=== PATIENT | female | born 1965 | race Hispanic/Latino ===

== ENCOUNTER → 2023-11-05 | Outpatient (CLI) | payer OTHER | END | disposition home or self-care (01) | LOC: EDUNIT# 07-19 13:30 → RAH 12:13 | PROVIDERS: ATTEND Physical Medicine & Rehabilitation | DX: M47.26 Other spondylosis with radiculopathy, lumbar region (principal); M48.061 Spinal stenosis, lumbar region without neurogenic claudication; M47.22 Other spondylosis with radiculopathy, cervical region; M41.9 Scoliosis, unspecified | CPT/HCPCS: 72050; 72114 ==

== ENCOUNTER → 2023-12-05 | Outpatient (CLI) | payer OTHER | END | disposition home or self-care (01) | LOC: RAH 11:52 | PROVIDERS: ATTEND Physician Assistant | DX: M47.26 Other spondylosis with radiculopathy, lumbar region (principal); M41.55 Other secondary scoliosis, thoracolumbar region; N28.1 Cyst of kidney, acquired; Z88.8 Allergy status to other drugs, medicaments and biological substances | CPT/HCPCS: 72148 ==

== ENCOUNTER → 2024-02-12 | Outpatient (CLI) | payer OTHER | END | disposition home or self-care (01) | LOC: RAH 11:04 | PROVIDERS: ATTEND Physical Medicine & Rehabilitation | DX: M47.22 Other spondylosis with radiculopathy, cervical region (principal); M48.02 Spinal stenosis, cervical region; M54.2 Cervicalgia; M43.22 Fusion of spine, cervical region | CPT/HCPCS: 72141 ==

== ENCOUNTER → 2024-12-03 | Outpatient (CLI) | payer OTHER ==
--- NOTE | 2024-12-03 17:07 | HMCIMG ---
LUMBAR W FLEXION/EXTENSION REASON: RADICULOPATHY, LUMBAR REGION. COMPARISON: None TECHNIQUE: 4 images of the lumbar spine were obtained including flexion and extension views. FINDINGS: There is straightening of normal lordotic lumbar curvature which may be related to muscle spasm or position. There are degenerative changes with spondylosis. Disc space narrowing are seen at L1-2 through L4-5 levels. No loss of device seen. IMPRESSION: DJD with spondylosis.
--- NOTE | 2024-12-03 17:09 | HMCIMG ---
CERV SPINE 4-5 VWS REASON: CERVICALGIA, RADICULOPATHY. COMPARISON: None TECHNIQUE: 5 images of cervical spine were obtained including flexion and extension views. FINDINGS: There is anterior subluxation of C3 over C4 and C4 over C5. There are degenerative changes of the cervical spine spondylosis. No loss of vertebral height is seen. IMPRESSION: Findings as described above.
--- NOTE | 2024-12-03 17:10 | HMCIMG ---
SCOLIOSIS 2-3VW REASON: SCOLIOSIS, OTHER IDIOPATHIC SCOLIOSIS, THORACIC REGION. COMPARISON: None TECHNIQUE: Scoliosis series was obtained. FINDINGS: There is dextroscoliosis of thoracolumbar spine with scoliotic angle of 31 degrees. No loss of vertebral height is seen. Degenerative changes are seen. IMPRESSION: Scoliosis.
== END | disposition home or self-care (01) ==
LOC: RAH 13:51
PROVIDERS: ATTEND Physician Assistant
DX: S13.150A Subluxation of C4/C5 cervical vertebrae, initial encounter (principal); S13.140A Subluxation of C3/C4 cervical vertebrae, initial encounter; M47.26 Other spondylosis with radiculopathy, lumbar region; M47.22 Other spondylosis with radiculopathy, cervical region; M48.061 Spinal stenosis, lumbar region without neurogenic claudication; M41.85 Other forms of scoliosis, thoracolumbar region; M41.24 Other idiopathic scoliosis, thoracic region; M47.9 Spondylosis, unspecified; M54.2 Cervicalgia; X58.XXXA Exposure to other specified factors, initial encounter; Y93.89 Activity, other specified; Y92.89 Other specified places as the place of occurrence of the external cause; Y99.8 Other external cause status
CPT/HCPCS: 72050; 72082; 72114

== ENCOUNTER → 2024-12-25 | Outpatient (CLI) | payer OTHER ==
--- NOTE | 2024-12-25 16:56 | HMCIMG ---
MR SPINAL CANAL, LUMBAR WO CON HISTORY: Back pain COMPARISON: None TECHNIQUE: MRI of the lumbar spine was performed utilizing multiple pulse sequences in axial , coronal and sagittal plane. Patient was not given contrast through intravenous route. FINDINGS: There is dextroscoliosis of thoracolumbar spine. Degenerative changes of the lumbar spine spondylosis. No abnormal signal intensity is seen of the visualized bony structure. No loss of vertebral height is seen. There is straightening of normal lumbar curvature which may be related to muscle spasm or positioning. Degenerative disc signals are present at all lumbar spine levels. Visualized distal conus is unremarkable. There is large right upper pole Bosniak type II renal cyst with fluid fluid level measuring 7.2 x 6.4 cm At the L3-4 level, there is spondylotic disc with bilateral ligamentum flavum hypertrophy causing anterior thecal sac compression with bilateral lateral recess stenosis and mild bilateral neural foraminal stenosis. The thecal sac measures approximately 4.2 mm in its anterior posterior dimension. At the L4-5 level, there is spondylotic disc with bilateral ligamentum flavum hypertrophy causing anterior thecal sac compression with bilateral lateral recess stenosis and bilateral neural foraminal stenosis. The thecal sac measures approximately 9.9 mm in its anterior posterior dimension. At the L5-S1 level, there is spondylotic disc with bilateral ligamentum flavum hypertrophy causing anterior thecal sac compression with bilateral lateral recess stenosis and bilateral neural foraminal stenosis. The thecal sac measures approximately 9 mm in its anterior posterior dimension. IMPRESSION: 1. DJD of the lumbar spine spondylosis as described above. This is predominantly seen at L3-4, L4-5 and L5-S1 levels. There is scoliosis. There is large Bosniak type II right upper pole renal cyst.
== END | disposition home or self-care (01) ==
LOC: RAH 15:15
PROVIDERS: ATTEND Physical Medicine & Rehabilitation
DX: M47.26 Other spondylosis with radiculopathy, lumbar region (principal); M47.818 Spondylosis without myelopathy or radiculopathy, sacral and sacrococcygeal region; M48.07 Spinal stenosis, lumbosacral region; M53.87 Other specified dorsopathies, lumbosacral region; N28.1 Cyst of kidney, acquired
CPT/HCPCS: 72148